=== PATIENT | male | born 1980 | race American Indian/Alaskan Native ===

== ENCOUNTER 2017-05-17 16:02 | Inpatient (IN) | payer SELFPAY ==
[2017-05-17 16:16] VITALS: BMI 25.8
[2017-05-17] MEDS ORDERED: Sodium Chloride 0.9% 1,000 ML IV ONE (16:18)
[2017-05-17] MEDS ORDERED: levETIRAcetam 500 MG in Sodium Chloride 0.9% 100 ML IVPB STA (16:18)
[2017-05-17 16:30] LABS: BASO % 0.4 % (0.0-2.0); EOS % 0.5 % (0.0-4.0); HEMATOCRIT 39.5 % (35.0-51.0); LYMPH % 22.4 % (20.0-40.0); MEAN CORPUSCULAR HEMOGLOBIN 32.2 pg (27.0-31.0); MEAN CORPUSCULAR HGB CONC 32.9 g/dL (33.0-37.0); MEAN PLATELET VOLUME 9.1 fL (7.2-11.7); MONO # 0.3 K/uL (0.0-0.8); MONO % 3.7 % (0.0-10.0); RED CELL DISTRIBUTION WIDTH 13.8 % (11.5-14.5)
[2017-05-17 16:31] LABS: MEAN CELL VOLUME 97.9 fL (80.0-94.0); WHITE BLOOD COUNT 8.9 K/uL (4.8-10.8)
[2017-05-17 16:39] LABS: CHLORIDE 103 mmol/L (98-107); POTASSIUM 4.3 mmol/L (3.6-5.2); SODIUM 138 mmol/L (132-148)
[2017-05-17 16:41] LABS: BILIRUBIN,TOTAL 0.7 mg/dL (0.2-1.3); GFR AFRICAN-AMERICAN > 60
[2017-05-17 16:42] LABS: ALB/GLOB RATIO 1.5 (1.0-2.1); ALKALINE PHOSPHATASE 42 U/L (38-126); ALT/SGPT 15 U/L (21-72); AST/SGOT 32 U/L (17-59); BLOOD UREA NITROGEN 13 mg/dL (9-20); CALCIUM 8.9 mg/dl (8.6-10.4); CARBON DIOXIDE 15 mmol/L (22-30); GLUCOSE,RANDOM 137 mg/dL (75-110); TOTAL PROTEIN 7.8 g/dL (6.3-8.3)
[2017-05-17 16:43] LABS: ALCOHOL SERUM < 10 mg/dl (0-10)
--- NOTE | 2017-05-17 16:44 | RAD ---
PROCEDURE: CHEST RADIOGRAPH, 1 VIEW HISTORY: Seizure COMPARISON: None available. FINDINGS: LUNGS: Clear. PLEURA: No pneumothorax or pleural fluid seen. CARDIOVASCULAR: Normal heart size. Endotracheal tube tip positioned approximately 4.7 cm above the tracheal juana. OSSEOUS STRUCTURES: No significant abnormalities. VISUALIZED UPPER ABDOMEN: Normal. OTHER FINDINGS: None. IMPRESSION: Endotracheal tube. No pulmonary infiltrate.
[2017-05-17] MEDS ORDERED: Midazolam 2 MG/2 ML VIAL ONE ×3 (16:55→17:53)
[2017-05-17] MEDS ORDERED: Midazolam 2 MG/2 ML VIAL IV STA ×2 (16:58)
--- NOTE | 2017-05-17 16:58 | C.PDOC ---
History Of Present Illness A 36 y/o male found on the path train with seizure that began [employer]. Pt was brought in by EMS and they reported that when they got to the path he was being supervised by police and the police noted he had constricted pupils and was seizing. Time and duration of initial seizure is unknown prior to EMS arrival. EMS reports that the pt appeared to have a mild generalized seizure with absence features (e.g. lateral gaze and staring). Pt was not responsive to verbal or physical stimuli at the scene. Medics gave him Ativan 2mg IV but the seizure did not stop. When they moved the pt to the stretcher he had a violent generalized tonic clonic seizure, where they gave him another 2mg of Ativan IV. He continued to seize and they administered RSI pre-medications with 200mg Succinylcholine and Versed 5mg. EMS were able to intubate him without difficulty , yet after intubation the pt started to seize again and they gave him another 5mg of Versed. Pt has no signs of injury and is currently unresponsive at this time. Time Seen by Provider: 05/17/17 16:05 Chief Complaint (Nursing): Seizure History Per: EMS History/Exam Limitations: clinical condition Recent Seizure Activity Began: Unknown Length Of Seizures (Duration): Unknown Quality Of Seizure: Generalized Post-ictal Period: Duration Unknown Severity: Moderate Past Medical History Reviewed: Historical Data, Nursing Documentation, Vital Signs Vital Signs: Last Vital Signs Temp 97.7 F 05/17/17 16:17 Pulse 111 H 05/17/17 16:17 Resp 21 05/17/17 16:17 BP Pulse Ox 99 05/17/17 17:24 - Medical History PMH: Asthma (CHILDHOOD NO LONGER), Fractures (FINGERS) Denies: Chronic Kidney Disease - [facility] Procedures PERCUTAN NEEDLE BX OF THYROID GLAND (01/19/15) Family History: States: Unknown Family Hx - Social History Hx Tobacco Use: No Hx Alcohol Use: No Hx Substance Use: Yes (MARIJUANA DAILY) - Immunization History Hx Influenza Vaccination: Yes Review Of Systems Review Of Systems: ROS cannot be obtained secondary to pt's inabilty to answer questions. Constitutional: Positive for: Other (No signs of trauma) Physical Exam - Physical Exam Appears: Other (Normal body habitus, clean and well kempt) Skin: Normal Color, Warm, Dry Head: Atraumatic, Normacephalic Eye(s): bilateral: Abnormal Pupil (constricted ) Nose: Normal Oral Mucosa: Moist Neck: No Step Off Deformity Chest: Symmetrical Cardiovascular: Rhythm Regular Respiratory: Normal Breath Sounds, Other (intubated, respirations via BVM) Gastrointestinal/Abdominal: Soft Neurological/Psych: No Response To Commands Pain Response: No Response To Pain ED Course And Treatment - Laboratory Results Result Diagrams: 05/17/17 16:22 05/17/17 16:22 Lab Interpretation: No Acute Changes ECG: Interpreted By Me ECG Rhythm: Sinus Rhythm ECG Interpretation: Normal O2 Sat by Pulse Oximetry: 99 - Radiology CXR: Interpreted by Fl CXR Interpretation: Yes: No Acute Disease (ET tube 4cm above the juana) Progress Note: Patient not showing any evidence of seizure activity in ED. Continues to be unresponsive. - Physician Consult Information Outcome Of Conversation: Case discussed with Dr Sullivan and Dr Pereyra. He will be admitted to ICU for status epilepticus. He remains unresponsive but did start to have purposeful movements and was attempting to remove IVs and ET tube. Additiona Versed administered. Unable to obtain CT exam due to patient agitation. Case discussed iw Dr Pereyra. Patient to be transferred to ICU for evaluation. Medical Decision Making Medical Decision Making: Impression: A 36 y/o male found on the path train with seizure that began [employer]. Seizure duration is unknown. Plans: CT Head w/o contrast EKG Blood labs Levetiracetam Versed inj x2 IV fluids NPO diet UA Reassess Disposition - Disposition Disposition: HOSPITALIZED Disposition Time: 18:45 Condition: STABLE - POA Present On Arrival: None - Clinical Impression Clinical Impression: Status epilepticus - Scribe Statement The provider has reviewed the documentation as recorded by the Scribe Edgar aguilar All medical record entries made by the Scribe were at my direction and personally dictated by me. I have reviewed the chart and agree that the record accurately reflects my personal performance of the history, physical exam, medical decision making, and the department course for this patient. I have also personally directed, reviewed, and agree with the discharge instructions and disposition.
[2017-05-17] MEDS ORDERED: Midazolam 50 mg/10 ml 100 MG in Dextrose 5% In Water 80 ML IV SCH (17:00)
[2017-05-17 17:48] LABS: RBC URINE 1 /hpf (0-3); URINE BACTERIA RARE (<OCC); URINE BILIRUBIN NEGATIVE (NEGATIVE); URINE BLOOD NEGATIVE (NEGATIVE); URINE COLOR Yellow (YELLOW); URINE GLUCOSE (UA) NORMAL (Normal); URINE KETONE NEGATIVE (NEGATIVE); URINE LEUKOCYTE ESTERASE NEG Leu/uL (Negative); URINE PROTEIN 1+ mg/dL (NEGATIVE); URINE UROBILINOGEN NORMAL mg/dL (0.2-1.0); WBC URINE 2 /hpf (0-5)
[2017-05-17] MEDS ORDERED: Midazolam 2 MG/2 ML VIAL IVP STA (17:55)
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
[2017-05-17] MEDS ORDERED: Propofol 10 mg/ml Inj (20 ML) ONE (18:30)
[2017-05-17] MEDS: Propofol 10 mg/ml 1,000 MG/100 ML VIAL IV PRN ×2 (18:45→21:13)
[2017-05-17] MEDS ORDERED: levETIRAcetam 500 MG in Sodium Chloride 0.9% 100 ML IVPB ONE (18:46)
[2017-05-17] MEDS ORDERED: Propofol 10 mg/ml Inj (20 ML) IV ONE (19:04)
[2017-05-17] MEDS ORDERED: levETIRAcetam 1,000 MG in Sodium Chloride 0.9% 100 ML IVPB ONE (19:20)
[2017-05-17 20:13] LABS: ABG MECHANICAL RATE 14; ARTERIAL BLOOD HGB O2 SAT 70.1 % (95.0-98.0); ATERIAL BLOOD GAS PEEP 5; CARBOXYHEMOGLOBIN 1.6 % (0.5-1.5); HHB 27.4 % (0.0-5.0); METHEMOGLOBIN 0.9 % (0.0-3.0)
[2017-05-17 20:23] LABS: ABG ALLEN TEST OS; DRAW SITE RRA
--- NOTE | 2017-05-17 22:20 | CT ---
EXAM: CT Head Without Intravenous Contrast CLINICAL HISTORY: 36 years old, male; Signs and symptoms; Other: Seizure; Patient HX: Status epilepticus TECHNIQUE: Axial computed tomography images of the head/brain without intravenous contrast. This CT exam was performed using one or more of the following dose reduction techniques: automated exposure control, adjustment of the mA and/or kV according to patient size, and/or use of iterative reconstruction technique. Coronal and sagittal reformatted images were created and reviewed. COMPARISON: No relevant prior studies available. FINDINGS: Brain: No intracranial hemorrhage. No mass. No definite edema. Ventricles: No hydrocephalus. Bones/joints: No acute fracture. Soft tissues: Unremarkable. Sinuses: No acute sinusitis. Mastoid air cells: No mastoid effusion. Orbits: Unremarkable as visualized. Tubes, lines and devices: Endotracheal tube. IMPRESSION: 1. No definite acute intracranial abnormality. 2. Incidental/non-acute findings are described above.
[2017-05-18] MEDS: Propofol 10 mg/ml 1,000 MG/100 ML VIAL IV PRN ×3 (01:29→09:21)
[2017-05-18 05:27] LABS: ABG ALLEN TEST POS; ABG MECHANICAL RATE 14; ARTERIAL BLOOD HGB O2 SAT 97.2 % (95.0-98.0); ATERIAL BLOOD GAS PEEP 5; CARBOXYHEMOGLOBIN 1.2 % (0.5-1.5); DRAW SITE RR; HHB 0.3 % (0.0-5.0); METHEMOGLOBIN 1.3 % (0.0-3.0)
--- NOTE | 2017-05-18 06:28 | CP.CCUPN ---
<Yanet Yi - Last Filed: 05/18/17 13:22> CCU Subjective - Physician Review Subjective (Free Text): 05/18/17 13:27 Patient seen and examined at bedside. Sedation was discontinued and patient was extubated this AM and placed on ventimask which he tolerated Patient currently on NC 3L He reports he is feeling well and wants to go home and walk around. Patient denied headache, dizziness, chest pain, SOB, cough, abd pain, pain/ swelling in legs bilaterally. Patient is still a little drowsy. Awaiting swallow eval. CCU Objective - Vital Signs / Intake & Output Vital Signs (Last 4 hours): Vital Signs Pulse Resp BP Pulse Ox 05/18/17 03:50 78 14 106/66 100 05/18/17 03:30 75 14 100 05/18/17 03:20 76 14 99/60 L 100 05/18/17 03:00 79 14 100 05/18/17 02:50 79 14 103/59 L 100 05/18/17 02:30 79 14 100 Intake and Output (Last 8hrs): Intake & Output 05/17/17 05/17/17 05/18/17 14:59 22:59 06:59 Intake Total 197.9 264.9 Output Total 175 285 Balance 22.9 -20.1 Weight 179 lb 5 oz Intake: IV 100 100 Intake, IV Amount 97.9 164.9 left forearm 4.8 8.0 right forearm 93.1 156.9 Oral 0 Output: Urine 175 285 Urethral (Quinonez) 175 285 Other: Voiding Method Indwelling Catheter # Bowel Movements 0 0 - Physical Exam Head: Positive for: Atraumatic, Normocephalic Pupils: Positive for: PERRL Extroacular Muscles: Positive for: EOMI Conjunctiva: Positive for: Normal. Negative for: Injected, Icteric Mouth: Positive for: Moist Mucous Membranes Neck: Positive for: Trachea Midline. Negative for: JVD Respiratory/Chest: Positive for: Clear to Auscultation, Good Air Exchange. Negative for: Respiratory Distress, Accessory Muscle Use, Wheezes, Rales, Rhonchi Cardiovascular: Positive for: Regular Rate and Rhythm, Normal S1, S2. Negative for: Murmurs Abdomen: Positive for: Normal Bowel Sounds. Negative for: Tenderness Upper Extremity: Positive for: Normal Inspection. Negative for: Cyanosis, Edema Lower Extremity: Positive for: Normal Inspection. Negative for: Edema Neurological: Positive for: Speech Normal Skin: Positive for: Warm, Dry, Rashes, Normal Color Psychiatric: Positive for: Alert, Oriented x 3 - Medications Active Medications: Active Medications Generic Name Dose Route Start Last Admin Trade Name Freq PRN Reason Stop Dose Admin Midazolam HCl 100 mg/ Dextrose 100 mls @ 1.63 mls/hr 05/17/17 17:00 05/17/17 17:30 IV 0.02 mg/kg/hr .Q24H NOLVIA 1.63 mls/hr Protocol Administration 0.02 MG/KG/HR Propofol 1,000 mg in 100 mls @ 1.47 mls/hr 05/17/17 18:28 05/18/17 03:50 Diprivan IV 40 mcg/kg/min .Q24H PRN 19.6 mls/hr TITRATE PER MD ORDER Titration Protocol 3 MCG/KG/MIN Levetiracetam 500 mg/ Sodium 105 mls @ 420 mls/hr 05/18/17 07:00 Chloride IVPB Q12H NOLVIA Pantoprazole Sodium 40 mg 05/18/17 10:00 Protonix Inj IVP DAILY NOLVIA Pneumococcal Polyvalent Vaccine 0.5 ml 05/19/17 10:00 Pneumovax 23 Vaccine IM 05/19/17 10:01 .ONCE ONE - Patient Studies Lab Studies: Lab Studies 05/18/17 05/17/17 Range/Units 05:14 20:05 Puncture Site Rr Rra pCO2 36 40 (35-45) mm/Hg pO2 201 H 527 H (80-100) mm/Hg HCO3 25.4 24.5 (21-28) mmol/L ABG pH 7.44 7.39 (7.35-7.45) ABG Total CO2 25.6 25.4 (22-28) mmol/L ABG O2 Saturation 99.7 H 100.5 H (95-98) % ABG Base Excess 0.6 -0.7 (-2.0-3.0) mmol/L ABG Hemoglobin 12.5 11.9 (11.7-17.4) g/dL ABG Carboxyhemoglobin 1.2 1.6 H (0.5-1.5) % POC ABG HHb (Measured) 0.3 27.4 H (0.0-5.0) % ABG Methemoglobin 1.3 0.9 (0.0-3.0) % Horacio Test Pos Os A-a O2 Difference 111.0 136.0 mm/Hg Respiratory Index 0.6 0.3 Hgb O2 Saturation 97.2 70.1 L (95.0-98.0) % Mechanical Rate 14 14 FiO2 50.0 100.0 % Tidal Volume 550 550 PEEP 5 5 Crit Value Called To Dr campos Crit Value Called By [facility] Crit Value Read Back Y Blood Gas Notified Time 2009 Laboratory Results - last 24 hr 05/17/17 05/18/17 20:05 05:14 Puncture Site Rra Rr pCO2 40 36 pO2 527 H 201 H HCO3 24.5 25.4 ABG pH 7.39 7.44 ABG Total CO2 25.4 25.6 ABG O2 Saturation 100.5 H 99.7 H ABG Base Excess -0.7 0.6 ABG Hemoglobin 11.9 12.5 ABG Carboxyhemoglobin 1.6 H 1.2 POC ABG HHb (Measured) 27.4 H 0.3 ABG Methemoglobin 0.9 1.3 Horacio Test Os Pos A-a O2 Difference 136.0 111.0 Respiratory Index 0.3 0.6 Hgb O2 Saturation 70.1 L 97.2 Mechanical Rate 14 14 FiO2 100.0 50.0 Tidal Volume 550 550 PEEP 5 5 Crit Value Called To Dr campos Crit Value Called By [facility] Crit Value Read Back Y Blood Gas Notified Time 2009 Fingerstick Blood Sugar Results: 115 Review of Systems - Review of Systems Review of Systems: complete ROS unobtainable as patient was drowsy from sedation Assessment/Plan - Assessment and Plan (Free Text) Assessment: 36 A.A. M PMHx thyroidectomy (2015) BIBA after witnessed seizure Plan: Neuro -s/p status epilepticus -possible hx of absence seizures- as per hx from -Off sedation -Patient extubated this AM tolerating NC 3L -Keppra 500mg po q12 -CT head unremarkable -f/u EEG -f/u MRI brain w/ and w/o contrast Cardiovascular -no acute issues -hemodynamically stable Pulmonology -extubated this AM -tolerating NC 3L GI -patient passed swallow eval -Regular diet for dinner Heme -no acute issues Renal -no acute issues -NS @ 80cc/hr Endocrine -s/p thyroidectomy 2015 -restarted synthroid 75mcg daily -TSH: 43.7 T4: 0.61 MSK -no acute issues ID -no acute issues DVT ppx: SCDs; Heparin 5000u sc q12 GI ppx: Protonix 40mg po daily Code status: full code Case discussed with Dr. Graham Yi PGY2 <Joseph Stevenson - Last Filed: 05/18/17 16:54> CCU Objective - Vital Signs / Intake & Output Vital Signs (Last 4 hours): Vital Signs Temp Pulse Resp BP Pulse Ox 05/18/17 16:00 98.4 F 77 32 H 121/73 100 05/18/17 15:30 84 17 137/81 05/18/17 15:18 79 21 133/76 100 05/18/17 14:30 82 32 H 100 05/18/17 14:00 88 32 H 123/85 100 05/18/17 13:30 79 21 127/74 100 05/18/17 13:00 81 14 127/89 100 05/18/17 12:30 96 H 22 123/78 100 Intake and Output (Last 8hrs): Intake & Output 05/18/17 05/18/17 05/18/17 06:59 14:59 22:59 Intake Total 423.6 265.2 120 Output Total 410 240 Balance 13.6 25.2 120 Weight 180 lb 1.883 oz Intake: IV 200 100 Intake, IV Amount 223.6 165.2 120 R forearm 100 Right Lower Forearm 4.8 120 Right Upper Forearm 210.8 58.8 left forearm 12.8 1.6 Output: Urine 410 240 Urethral (Quinonez) 410 240 Other: # Voids Urine, Voided 0 # Bowel Movements 0 0 0 - Medications Active Medications: Active Medications Generic Name Dose Route Start Last Admin Trade Name Freq PRN Reason Stop Dose Admin Heparin Sodium (Porcine) 5,000 units 05/18/17 22:00 Heparin SC Q12 NOLVIA Sodium Chloride 1,000 mls @ 80 mls/hr 05/18/17 13:45 05/18/17 14:23 Sodium Chloride 0.9% IV 80 mls/hr .[id number] NOLVIA Administration Levetiracetam 500 mg 05/18/17 18:00 Keppra PO BID [facility] Levothyroxine Sodium 75 mcg 05/19/17 06:30 Synthroid PO DAILY@0630 [facility] Pantoprazole Sodium 40 mg 05/19/17 10:00 Protonix Ec Tab PO DAILY [facility] Pneumococcal Polyvalent Vaccine 0.5 ml 05/19/17 10:00 Pneumovax 23 Vaccine IM 05/19/17 10:01 .ONCE ONE - Patient Studies Lab Studies: Lab Studies 05/18/17 05/18/17 05/18/17 Range/Units 06:27 06:27 06:27 WBC 10.0 (4.8-10.8) K/uL RBC 4.00 L (4.40-5.90) Mil/uL Hgb 13.0 (12.0-18.0) g/dL Hct 38.3 (35.0-51.0) % MCV 95.9 H D (80.0-94.0) fL MCH 32.5 H (27.0-31.0) pg MCHC 33.9 (33.0-37.0) g/dL RDW 13.8 (11.5-14.5) % Plt Count 130 (130-400) K/uL MPV 10.4 (7.2-11.7) fL Neut % (Auto) 67.0 (50.0-75.0) % Lymph % (Auto) 25.1 (20.0-40.0) % Burnett % (Auto) 6.8 (0.0-10.0) % Eos % (Auto) 0.4 (0.0-4.0) % Baso % (Auto) 0.7 (0.0-2.0) % Neut # 6.7 (1.8-7.0) K/uL Lymph # 2.5 (1.0-4.3) K/uL Burnett # 0.7 (0.0-0.8) K/uL Eos # 0.0 (0.0-0.7) K/uL Baso # 0.1 (0.0-0.2) K/uL Puncture Site pCO2 (35-45) mm/Hg pO2 (80-100) mm/Hg HCO3 (21-28) mmol/L ABG pH (7.35-7.45) ABG Total CO2 (22-28) mmol/L ABG O2 Saturation (95-98) % ABG Base Excess (-2.0-3.0) mmol/L ABG Hemoglobin (11.7-17.4) g/dL ABG Carboxyhemoglobin (0.5-1.5) % POC ABG HHb (Measured) (0.0-5.0) % ABG Methemoglobin (0.0-3.0) % Horacio Test A-a O2 Difference mm/Hg Respiratory Index Hgb O2 Saturation (95.0-98.0) % Mechanical Rate FiO2 % Tidal Volume PEEP Crit Value Called To Crit Value Called By Crit Value Read Back Blood Gas Notified Time Sodium 137 (132-148) mmol/L Potassium 3.6 (3.6-5.2) mmol/L Chloride 102 (98-107) mmol/L Carbon Dioxide 24 (22-30) mmol/L Anion Gap 14 (10-20) BUN 11 (9-20) mg/dL Creatinine 0.8 (0.8-1.5) MG/DL Est GFR ( Amer) > 60 Est GFR (Non-Af Amer) > 60 Random Glucose 99 (75-110) mg/dL Calcium 9.0 (8.6-10.4) mg/dl Phosphorus 3.4 (2.5-4.5) mg/dL Magnesium 2.4 H (1.6-2.3) mg/dL Total Bilirubin 1.0 (0.2-1.3) mg/dL AST 38 (17-59) U/L ALT 19 L D (21-72) U/L Alkaline Phosphatase 46 (38-126) U/L Total Protein 7.3 (6.3-8.3) g/dL Albumin 4.3 (3.5-5.0) g/dL Globulin 3.0 (2.2-3.9) gm/dL Albumin/Globulin Ratio 1.4 (1.0-2.1) Free T4 0.61 L (0.78-2.19) ng/dL TSH 3rd Generation 43.70 H (0.46-4.68) mIU/L 05/18/17 05/17/17 Range/Units 05:14 20:05 WBC (4.8-10.8) K/uL RBC (4.40-5.90) Mil/uL Hgb (12.0-18.0) g/dL Hct (35.0-51.0) % MCV (80.0-94.0) fL MCH (27.0-31.0) pg MCHC (33.0-37.0) g/dL RDW (11.5-14.5) % Plt Count (130-400) K/uL MPV (7.2-11.7) fL Neut % (Auto) (50.0-75.0) % Lymph % (Auto) (20.0-40.0) % Burnett % (Auto) (0.0-10.0) % Eos % (Auto) (0.0-4.0) % Baso % (Auto) (0.0-2.0) % Neut # (1.8-7.0) K/uL Lymph # (1.0-4.3) K/uL Burnett # (0.0-0.8) K/uL Eos # (0.0-0.7) K/uL Baso # (0.0-0.2) K/uL Puncture Site Rr Rra pCO2 36 40 (35-45) mm/Hg pO2 201 H 527 H (80-100) mm/Hg HCO3 25.4 24.5 (21-28) mmol/L ABG pH 7.44 7.39 (7.35-7.45) ABG Total CO2 25.6 25.4 (22-28) mmol/L ABG O2 Saturation 99.7 H 100.5 H (95-98) % ABG Base Excess 0.6 -0.7 (-2.0-3.0) mmol/L ABG Hemoglobin 12.5 11.9 (11.7-17.4) g/dL ABG Carboxyhemoglobin 1.2 1.6 H (0.5-1.5) % POC ABG HHb (Measured) 0.3 27.4 H (0.0-5.0) % ABG Methemoglobin 1.3 0.9 (0.0-3.0) % Horacio Test Pos Os A-a O2 Difference 111.0 136.0 mm/Hg Respiratory Index 0.6 0.3 Hgb O2 Saturation 97.2 70.1 L (95.0-98.0) % Mechanical Rate 14 14 FiO2 50.0 100.0 % Tidal Volume 550 550 PEEP 5 5 Crit Value Called To Dr campos Crit Value Called By [facility] Crit Value Read Back Y Blood Gas Notified Time 2009 Sodium (132-148) mmol/L Potassium (3.6-5.2) mmol/L Chloride (98-107) mmol/L Carbon Dioxide (22-30) mmol/L Anion Gap (10-20) BUN (9-20) mg/dL Creatinine (0.8-1.5) MG/DL Est GFR ( Amer) Est GFR (Non-Af Amer) Random Glucose (75-110) mg/dL Calcium (8.6-10.4) mg/dl Phosphorus (2.5-4.5) mg/dL Magnesium (1.6-2.3) mg/dL Total Bilirubin (0.2-1.3) mg/dL AST (17-59) U/L ALT (21-72) U/L Alkaline Phosphatase (38-126) U/L Total Protein (6.3-8.3) g/dL Albumin (3.5-5.0) g/dL Globulin (2.2-3.9) gm/dL Albumin/Globulin Ratio (1.0-2.1) Free T4 (0.78-2.19) ng/dL TSH 3rd Generation (0.46-4.68) mIU/L Laboratory Results - last 24 hr 05/17/17 05/18/17 05/18/17 20:05 05:14 06:27 WBC 10.0 RBC 4.00 L Hgb 13.0 Hct 38.3 MCV 95.9 H D MCH 32.5 H MCHC 33.9 RDW 13.8 Plt Count 130 MPV 10.4 Neut % (Auto) 67.0 Lymph % (Auto) 25.1 Burnett % (Auto) 6.8 Eos % (Auto) 0.4 Baso % (Auto) 0.7 Neut # 6.7 Lymph # 2.5 Burnett # 0.7 Eos # 0.0 Baso # 0.1 Puncture Site Rra Rr pCO2 40 36 pO2 527 H 201 H HCO3 24.5 25.4 ABG pH 7.39 7.44 ABG Total CO2 25.4 25.6 ABG O2 Saturation 100.5 H 99.7 H ABG Base Excess -0.7 0.6 ABG Hemoglobin 11.9 12.5 ABG Carboxyhemoglobin 1.6 H 1.2 POC ABG HHb (Measured) 27.4 H 0.3 ABG Methemoglobin 0.9 1.3 Horacio Test Os Pos A-a O2 Difference 136.0 111.0 Respiratory Index 0.3 0.6 Hgb O2 Saturation 70.1 L 97.2 Mechanical Rate 14 14 FiO2 100.0 50.0 Tidal Volume 550 550 PEEP 5 5 Crit Value Called To Dr campos Crit Value Called By [facility] Crit Value Read Back Y Blood Gas Notified Time 2009 Sodium Potassium Chloride Carbon Dioxide Anion Gap BUN Creatinine Est GFR ( Amer) Est GFR (Non-Af Amer) Random Glucose Calcium Phosphorus Magnesium Total Bilirubin AST ALT Alkaline Phosphatase Total Protein Albumin Globulin Albumin/Globulin Ratio Free T4 TSH 3rd Generation 05/18/17 05/18/17 06:27 06:27 WBC RBC Hgb Hct MCV MCH MCHC RDW Plt Count MPV Neut % (Auto) Lymph % (Auto) Burnett % (Auto) Eos % (Auto) Baso % (Auto) Neut # Lymph # Burnett # Eos # Baso # Puncture Site pCO2 pO2 HCO3 ABG pH ABG Total CO2 ABG O2 Saturation ABG Base Excess ABG Hemoglobin ABG Carboxyhemoglobin POC ABG HHb (Measured) ABG Methemoglobin Horacio Test A-a O2 Difference Respiratory Index Hgb O2 Saturation Mechanical Rate FiO2 Tidal Volume PEEP Crit Value Called To Crit Value Called By Crit Value Read Back Blood Gas Notified Time Sodium 137 Potassium 3.6 Chloride 102 Carbon Dioxide 24 Anion Gap 14 BUN 11 Creatinine 0.8 Est GFR ( Amer) > 60 Est GFR (Non-Af Amer) > 60 Random Glucose 99 Calcium 9.0 Phosphorus 3.4 Magnesium 2.4 H Total Bilirubin 1.0 AST 38 ALT 19 L D Alkaline Phosphatase 46 Total Protein 7.3 Albumin 4.3 Globulin 3.0 Albumin/Globulin Ratio 1.4 Free T4 0.61 L TSH 3rd Generation 43.70 H Critical Care Progress Note - Nutrition Nutrition: Nutrition Category Date Time Status Regular Diet [DIET] Diets 05/18/17 Dinner Active Attending/Attestation - Attestation I have personally seen and examined this patient.: Yes I have fully participated in the care of the patient.: Yes I have reviewed all pertinent clinical information: Yes Notes (Text): 05/18/17 16:24 I have seen and examined the patient. Medical records, lab studies, and imaging were reviewed by me and a management plan was formulated on multidisciplinary rounds with resident Dr. Yi. I agree with their above documented assessment and plan. Patient has history of absence seizures, continue Keppra po bid. Patient extubated, and clinically stable for downgrade to the floors. Critical Care Time 35 minutes. Multi-disciplinary rounds were performed with house staff, nursing, speech therapy, respiratory therapy, pharmacy and nutrition with integrated input from the primary team/attending and other consulting services. The documented time is cumulative and includes review of patient data/exams/labs/chart review and examination of the patient on rounds and throughout the day; time is exclusive of any procedures or teaching time. 05/18/17 16:25 05/18/17 16:53
[2017-05-18 06:36] LABS: BASO # 0.1 K/uL (0.0-0.2); BASO % 0.7 % (0.0-2.0); EOS % 0.4 % (0.0-4.0); HEMATOCRIT 38.3 % (35.0-51.0); LYMPH # 2.5 K/uL (1.0-4.3); LYMPH % 25.1 % (20.0-40.0); MEAN CELL VOLUME 95.9 fL (80.0-94.0); MEAN CORPUSCULAR HEMOGLOBIN 32.5 pg (27.0-31.0); MEAN CORPUSCULAR HGB CONC 33.9 g/dL (33.0-37.0); MEAN PLATELET VOLUME 10.4 fL (7.2-11.7); MONO # 0.7 K/uL (0.0-0.8); MONO % 6.8 % (0.0-10.0); NRBC % 0.1 % (0.0-2.0); RED CELL DISTRIBUTION WIDTH 13.8 % (11.5-14.5)
[2017-05-18] MEDS ORDERED: levETIRAcetam 500 MG in Sodium Chloride 0.9% 100 ML IVPB SCH (07:00)
[2017-05-18 07:04] LABS: CHLORIDE 102 mmol/L (98-107)
[2017-05-18 07:05] LABS: POTASSIUM 3.6 mmol/L (3.6-5.2); SODIUM 137 mmol/L (132-148)
[2017-05-18 07:07] LABS: ALB/GLOB RATIO 1.4 (1.0-2.1); ALKALINE PHOSPHATASE 46 U/L (38-126); AST/SGOT 38 U/L (17-59); BLOOD UREA NITROGEN 11 mg/dL (9-20); CARBON DIOXIDE 24 mmol/L (22-30); GFR AFRICAN-AMERICAN > 60; GLUCOSE,RANDOM 99 mg/dL (75-110); TOTAL PROTEIN 7.3 g/dL (6.3-8.3)
[2017-05-18 07:08] LABS: ALT/SGPT 19 U/L (21-72); MAGNESIUM 2.4 mg/dL (1.6-2.3); PHOSPHOROUS 3.4 mg/dL (2.5-4.5)
--- NOTE | 2017-05-18 10:26 | CP.PCM.CON ---
History of Present Illness - History of Present Illness History of Present Illness: Mr. Mahoney is a 36-year-old man with a past medical history of thyroidectomy and some episodes of shakes and "spacing out" per the . According to EMS report , the patient [place] on the train that lasted about 15 minutes. He was given 2 mg of Ativan, and he had another seizure, therefor he was given another 2 mg and subsequently intubated. Currently, the patient is in the ICU, intubated, sedated on midazolam and propofol. He was loaded with 1000 mg of Keppra yesterday and given another dose of 500 mg this AM. There were no other clinical seizures overnight. Review of Systems - Review of Systems Systems not reviewed;Unavailable: Altered Mental Status, Intubated Past Patient History - Past Medical History & Family History Past Medical History?: Yes - Past Social History Smoking Status: Never Smoked - CARDIAC Hx Cardiac Disorders: No - PULMONARY Hx Asthma: Yes (CHILDHOOD ,NO LONGER an active problem) - NEUROLOGICAL Hx Neurological Disorder: No - HEENT Hx HEENT Problems: Yes (Thyroid Nodule, goiter) - RENAL Hx Chronic Kidney Disease: No - ENDOCRINE/METABOLIC Hx Endocrine Disorders: Yes Other/Comment: Thyroid Nodule/goiter - HEMATOLOGICAL/ONCOLOGICAL Hx Blood Disorders: No - INTEGUMENTARY Hx Dermatological Problems: No - MUSCULOSKELETAL/RHEUMATOLOGICAL Hx Falls: No - GASTROINTESTINAL Hx Gastrointestinal Disorders: No - GENITOURINARY/GYNECOLOGICAL Hx Genitourinary Disorders: No - PSYCHIATRIC Hx Substance Use: Yes (MARIJUANA DAILY) - SURGICAL HISTORY Hx Surgeries: Yes Other/Comment: thyroidectomy July 12, 2015 - ANESTHESIA Hx Anesthesia: Yes Hx Anesthesia Reactions: No Hx Malignant Hyperthermia: No Meds Allergies/Adverse Reactions: Allergies Allergy/AdvReac Type Severity Reaction Status Date / Time No Known Allergies Allergy Verified 05/17/17 16:16 - Medications Medications: Current Medications Midazolam HCl 100 mg/ Dextrose 100 mls @ 1.63 mls/hr IV .Q24H NOLVIA; 0.02 MG/KG/ HR PRN Reason: Protocol Last Admin: 05/17/17 17:30 Dose: 0.02 mg/kg/hr, 1.63 mls/hr Propofol (Diprivan) 1,000 mg in 100 mls @ 1.47 mls/hr IV .Q24H PRN; Protocol; 3 MCG/KG/MIN PRN Reason: TITRATE PER MD ORDER Last Admin: 05/18/17 09:21 Dose: 30 mcg/kg/min, 14.7 mls/hr Levetiracetam 500 mg/ Sodium (Chloride) 105 mls @ 420 mls/hr IVPB Q12H [facility] Last Admin: 05/18/17 07:00 Dose: 420 mls/hr Pantoprazole Sodium (Protonix Inj) 40 mg IVP DAILY [facility] Last Admin: 05/18/17 09:20 Dose: 40 mg Pneumococcal Polyvalent Vaccine (Pneumovax 23 Vaccine) 0.5 ml IM .ONCE ONE Stop: 05/19/17 10:01 Physical Exam - Constitutional Appears: Well - Head Exam Head Exam: ATRAUMATIC, NORMAL INSPECTION, NORMOCEPHALIC - Eye Exam Eye Exam: EOMI, Normal appearance, PERRL - Neck Exam Neck exam: Positive for: Normal Inspection - Respiratory Exam Additional comments: Intubated, sedated, breathing over the vent and tolerating it well. - GI/Abdominal Exam GI & Abdominal Exam: Normal Bowel Sounds, Soft. absent: Tenderness - Neurological Exam Additional comments: When off sedation, followed simple commands, moved all extremities, CN 2-12 were intact, reflexes were normal, plantar response was flexor bilaterally, no gaze palsy noted. - Skin Skin Exam: Dry, Intact, Normal Color, Warm Results - Vital Signs Recent Vital Signs: Last Vital Signs Temp 98.3 F 05/18/17 08:00 Pulse 79 05/18/17 10:00 Resp 14 05/18/17 10:00 BP 107/62 05/18/17 10:00 Pulse Ox 100 05/18/17 10:00 - Labs Result Diagrams: 05/18/17 06:27 05/18/17 06:27 Labs: Laboratory Results - last 24 hr 05/17/17 05/18/17 05/18/17 20:05 05:14 06:27 WBC 10.0 RBC 4.00 L Hgb 13.0 Hct 38.3 MCV 95.9 H D MCH 32.5 H MCHC 33.9 RDW 13.8 Plt Count 130 MPV 10.4 Neut % (Auto) 67.0 Lymph % (Auto) 25.1 [place] % (Auto) 6.8 Eos % (Auto) 0.4 Baso % (Auto) 0.7 Neut # 6.7 Lymph # 2.5 [place] # 0.7 Eos # 0.0 Baso # 0.1 Puncture Site Rra Rr pCO2 40 36 pO2 527 H 201 H HCO3 24.5 25.4 ABG pH 7.39 7.44 ABG Total CO2 25.4 25.6 ABG O2 Saturation 100.5 H 99.7 H ABG Base Excess -0.7 0.6 ABG Hemoglobin 11.9 12.5 ABG Carboxyhemoglobin 1.6 H 1.2 POC ABG HHb (Measured) 27.4 H 0.3 ABG Methemoglobin 0.9 1.3 Horacio Test Os Pos A-a O2 Difference 136.0 111.0 Respiratory Index 0.3 0.6 Hgb O2 Saturation 70.1 L 97.2 Mechanical Rate 14 14 FiO2 100.0 50.0 Tidal Volume 550 550 PEEP 5 5 Crit Value Called To Dr campos Crit Value Called By [facility] [place] Crit Value Read Back Y Blood Gas Notified Time 2009 Sodium Potassium Chloride Carbon Dioxide Anion Gap BUN Creatinine Est GFR ( Amer) Est GFR (Non-Af Amer) Random Glucose Calcium Phosphorus Magnesium Total Bilirubin AST ALT Alkaline Phosphatase Total Protein Albumin Globulin Albumin/Globulin Ratio Free T4 TSH 3rd Generation 05/18/17 05/18/17 06:27 06:27 WBC RBC Hgb Hct MCV MCH MCHC RDW Plt Count MPV Neut % (Auto) Lymph % (Auto) [place] % (Auto) Eos % (Auto) Baso % (Auto) Neut # Lymph # [place] # Eos # Baso # Puncture Site pCO2 pO2 HCO3 ABG pH ABG Total CO2 ABG O2 Saturation ABG Base Excess ABG Hemoglobin ABG Carboxyhemoglobin POC ABG HHb (Measured) ABG Methemoglobin Horacio Test A-a O2 Difference Respiratory Index Hgb O2 Saturation Mechanical Rate FiO2 Tidal Volume PEEP Crit Value Called To Crit Value Called By Crit Value Read Back Blood Gas Notified Time Sodium 137 Potassium 3.6 Chloride 102 Carbon Dioxide 24 Anion Gap 14 BUN 11 Creatinine 0.8 Est GFR ( Amer) > 60 Est GFR (Non-Af Amer) > 60 Random Glucose 99 Calcium 9.0 Phosphorus 3.4 Magnesium 2.4 H Total Bilirubin 1.0 AST 38 ALT 19 L D Alkaline Phosphatase 46 Total Protein 7.3 Albumin 4.3 Globulin 3.0 Albumin/Globulin Ratio 1.4 Free T4 0.61 L TSH 3rd Generation 43.70 H - Imaging and Cardiology CT scan - head Status: Image reviewed by me, Report reviewed by me (No acute findings. ) Assessment & Plan (1) Status epilepticus Assessment and Plan: Loaded with Keppra, will continue 500 mg Q12. Will review the EEG and begin weaning off the Versed and propofol with a plan to extubate when stable. MRI of the brain will be done after extubation with and without contrast. Continue DVT Px, GI Px, PT/OT if needed when stable. Thank you for this consultation. Status: Acute Priority: High
--- NOTE | 2017-05-18 10:39 | RAD ---
Chest x-ray single frontal view History: Intubated. Comparison: 05/17/2017 Findings: Endotracheal tube extending into the mid thoracic trachea. Mild venous congestion. Rounded masslike opacity projecting over the lateral aspect of the left upper lung zone may be external. Clinical correlation. Heart size within normal limits. Degenerative changes in the spine shoulders. Impression: Endotracheal tube extending into the mid thoracic trachea. Mild venous congestion. Rounded masslike opacity projecting over the lateral aspect of the left upper lung zone may be external. Clinical correlation.
--- NOTE | 2017-05-18 11:14 | EEG ---
DATE: 05/17/2017 REFERRING PHYSICIAN: Dr. Aram Sullivan. CONDITION OF RECORDING: Awake and drowsy. DIAGNOSIS: Status epilepticus. MEDICATIONS: Reviewed per the nurse's reconciliation sheet. INTERPRETATION: This is a 16-channel international recording. The background activity was composed of mostly beta and some alpha. There was a poorly organized background rhythm of about 8-10 Hz. At times this was 20-50 microvolt and consistent with alpha. It did attenuate with eye opening, but was overwhelmed at times with beta activity as well. Stage II sleep was not achieved. Hyperventilation was not performed. Photic stimulation did not significantly alter the background rhythm. There was prominent muscle artifact as well as machinery artifact. There were no epileptiform discharges note d. IMPRESSION: This is probably a normal awake and drowsy electroencephalogram that is affected by reynaldo odiazepine influence. However, in the appropriate clinical setting, the patient may require prolonge d electroencephalogram monitoring, considering he did have several seizures prior to intubation. Reggie Freeman MD cc: [id number] TT: 05/18/2017 11:14:08 Confirmation # [id number] Dictation # [id number] mn
[2017-05-18] MEDS: Sodium Chloride 0.9% 1,000 ML IV SCH (14:23)
[2017-05-18] MEDS ORDERED: Gadodiamide 287 MG/ML VIAL (15ML) IV ONE (16:45)
--- NOTE | 2017-05-18 16:55 | CP.PCM.PN ---
Subjective - Date & Time of Evaluation Date of Evaluation: 05/18/17 Time of Evaluation: 14:00 - Subjective Subjective: Patient seen and examined in ICU Patient is extubated now Appears agitated and wants to leave the hospital Family is present at bedside Objective - Vital Signs/Intake and Output Vital Signs (last 24 hours): Temp Pulse Resp BP Pulse Ox 98.4 F 77 32 H 121/73 100 05/18/17 16:00 05/18/17 16:00 05/18/17 16:00 05/18/17 16:00 05/18/17 16:00 Intake and Output: 05/18/17 05/18/17 06:59 18:59 Intake Total 621.5 385.2 Output Total 585 240 Balance 36.5 145.2 - Medications Medications: Current Medications Heparin Sodium (Porcine) (Heparin) 5,000 units SC Q12 NOLVIA Sodium Chloride (Sodium Chloride 0.9%) 1,000 mls @ 80 mls/hr IV .[id number] NOLVIA Last Admin: 05/18/17 14:23 Dose: 80 mls/hr Levetiracetam (Keppra) 500 mg PO BID NOLVIA Levothyroxine Sodium (Synthroid) 75 mcg PO DAILY@0630 NOLVIA Pantoprazole Sodium (Protonix Ec Tab) 40 mg PO DAILY NOLVIA Pneumococcal Polyvalent Vaccine (Pneumovax 23 Vaccine) 0.5 ml IM .ONCE ONE Stop: 05/19/17 10:01 - Labs Labs: 05/18/17 06:27 05/18/17 06:27 - Head Exam Head Exam: ATRAUMATIC, NORMOCEPHALIC - Eye Exam Eye Exam: EOMI, Normal appearance, PERRL - ENT Exam ENT Exam: Mucous Membranes Moist - Neck Exam Neck Exam: Normal Inspection - Respiratory Exam Respiratory Exam: Clear to Ausculation Bilateral. absent: Chest Wall Tenderness - Cardiovascular Exam Cardiovascular Exam: REGULAR RHYTHM, +S1, +S2 - Extremities Exam Extremities Exam: absent: Pedal Edema - Neurological Exam Neurological Exam: Alert, Awake Assessment and Plan (1) Status epilepticus Assessment & Plan: Patient was admitted to ICU. He was intubated. Now he is extubated. A neurology consultation seen in appreciated Patient started on Keppra. Status: Acute (2) Hypothyroidism Assessment & Plan: Patient is on Synthroid. Status: Acute - Assessment and Plan (Free Text) Plan: Workup is in progress. As per ICU team patient to be downgraded to Med/Surg floor
--- NOTE | 2017-05-18 19:41 | CARD ---
APPROVED REPORT EKG Measurement Heart [id number] <Conclusion> Normal sinus rhythm Normal ECG
[2017-05-19] MEDS: Sodium Chloride 0.9% 1,000 ML IV SCH (04:10)
[2017-05-19] MEDS ORDERED: Levothyroxine 75 MCG TAB PO SCH (06:30)
[2017-05-19 06:43] LABS: HEMATOCRIT 36.8 % (35.0-51.0); MEAN CELL VOLUME 95.5 fL (80.0-94.0); MEAN CORPUSCULAR HGB CONC 33.5 g/dL (33.0-37.0); MEAN PLATELET VOLUME 9.9 fL (7.2-11.7); RED CELL DISTRIBUTION WIDTH 13.8 % (11.5-14.5); WHITE BLOOD COUNT 9.4 K/uL (4.8-10.8)
[2017-05-19 08:05] LABS: CHLORIDE 105 mmol/L (98-107); POTASSIUM 3.6 mmol/L (3.6-5.2); SODIUM 138 mmol/L (132-148)
[2017-05-19 08:07] LABS: CARBON DIOXIDE 27 mmol/L (22-30); GFR AFRICAN-AMERICAN > 60
[2017-05-19 08:08] LABS: ALB/GLOB RATIO 1.1 (1.0-2.1); ALKALINE PHOSPHATASE 41 U/L (38-126); ALT/SGPT 21 U/L (21-72); AST/SGOT 28 U/L (17-59); BLOOD UREA NITROGEN 10 mg/dL (9-20); CALCIUM 8.7 mg/dl (8.6-10.4); GLUCOSE,RANDOM 98 mg/dL (75-110); TOTAL PROTEIN 6.7 g/dL (6.3-8.3)
[2017-05-19 08:44] VITALS: BP 125/93; PULSE 60; RESP 11; TEMP 97.9; O2SAT 100
[2017-05-19] MEDS ORDERED: Pantoprazole 40 mg EC Tab PO SCH (10:00)
[2017-05-19] MEDS ORDERED: Pneumococcal 23-Valent Vaccine IM ONE (10:00)
--- NOTE | 2017-05-19 10:31 | MRI ---
PROCEDURE: MRI BRAIN WITH AND WITHOUT CONTRAST HISTORY: New onset tonic-clonic seizure COMPARISON: Comparison made with prior CT scan brain 05/17/2017 TECHNIQUE: Multiplanar, multisequence MR images of the brain were obtained before and following intravenous injection of approximately 15 cc Omniscan contrast material contrast enhancement. FINDINGS: HEMORRHAGE: No acute parenchymal, subarachnoid or extra-axial hemorrhage. No evidence hemosiderin deposition identified on gradient echo weighted sequence. DWI: No evidence of an acute or early subacute infarction seen on diffusion imaging. . BRAIN PARENCHYMA: Mild very subtle slightly confluent nonenhancing prolonged T2 signal changes seen in the very atrial/tearing occipital horn white matter. In addition, there are a few tiny focal areas of increased T2 signal scattered about subcortical white matter both cerebral hemispheres the too small to characterize and nonspecific. Changes of uncertain etiology though differential diagnosis would include sequela of chronic ischemia, migraine headaches, old trauma, post infectious/ inflammatory. Demyelinating disease process would be less likely in the absence of a pertinent clinical history however not completely excluded. Note also made of what appears represent a tiny cyst within the posterior superior margin of the pituitary gland measures approximately 6.5 mm trans x 3.7 mm cc. This could represent a benign arachnoid cyst, colloid cyst or of a Rathke's cleft cyst cannot be excluded. Followup dedicated MRI of the pituitary gland at interval may be prudent for further evaluation and serve as baseline for prior comparison studies. No enhancing parenchymal nor extra-axial masses. No evidence of unusual meningeal enhancement. No evidence to suggest mesial temporal sclerosis. Ventricular and sulcal size are within range of normal for this patient's stated age. ENHANCEMENT: No abnormal intracranial enhancement as above. . VENTRICLES: No evidence of obstructive hydrocephalus. CRANIUM: No acute calvarial abnormalities. ORBITS: Grossly unremarkable. PARANASAL SINUSES/MASTOIDS: Minimal mucosal thickening seen within a few ethmoid air cells VASCULAR SYSTEM: Visualized major vascular flow voids at skull base are patent. OTHER FINDINGS: None . IMPRESSION: No acute intracranial hemorrhage or infarct. Minor slightly confluent nonenhancing prolonged T2 signal changes seen in the periventricular white matter surrounding the atria and occipital horns. There are also a few tiny foci of nonenhancing increased T2 signal scattered about the subcortical white matter. Changes are nonspecific though could represent sequela of chronic ischemia, migraine headaches or old trauma. See above discussion for additional differential diagnostic considerations. There is a small cyst within the posterior superior margin of the pituitary gland of uncertain etiology. This could represent a benign pituitary gland cyst -arachnoid cyst, colloid cyst or Rathke's cleft cyst not excluded. Neoplastic cystic lesion less likely though not completely excluded. . Followup study at interval recommended to assess stability .
--- NOTE | 2017-05-19 21:23 | CP.PCM.DIS ---
<Nette Payne - Last Filed: 05/19/17 20:58> Provider - Provider Date of Admission: 05/17/17 18:21 Attending physician: Aram Sullivan MD Primary care physician: Dr. Ballard Consults: Dr. Freeman- Neurology Time Spent in preparation of Discharge (in minutes): 45 Diagnosis - Discharge Diagnosis (1) Status epilepticus Status: Resolved Priority: High Comment: See hospital summary for further details. (2) Hypothyroidism Status: Chronic Comment: See hospital summary for further details. Hospital Course - Lab Results Lab Results: Most Recent Lab Values WBC 9.4 K/uL (4.8-10.8) 05/19/17 06:41 RBC 3.86 Mil/uL (4.40-5.90) L 05/19/17 06:41 Hgb 12.4 g/dL (12.0-18.0) 05/19/17 06:41 Hct 36.8 % (35.0-51.0) 05/19/17 06:41 MCV 95.5 fL (80.0-94.0) H 05/19/17 06:41 MCH 32.0 pg (27.0-31.0) H 05/19/17 06:41 MCHC 33.5 g/dL (33.0-37.0) 05/19/17 06:41 RDW 13.8 % (11.5-14.5) 05/19/17 06:41 Plt Count 123 K/uL (130-400) L 05/19/17 06:41 MPV 9.9 fL (7.2-11.7) 05/19/17 06:41 Neut % (Auto) 67.0 % (50.0-75.0) 05/18/17 06:27 Lymph % (Auto) 25.1 % (20.0-40.0) 05/18/17 06:27 [place] % (Auto) 6.8 % (0.0-10.0) 05/18/17 06:27 Eos % (Auto) 0.4 % (0.0-4.0) 05/18/17 06:27 Baso % (Auto) 0.7 % (0.0-2.0) 05/18/17 06:27 Neut # 6.7 K/uL (1.8-7.0) 05/18/17 06:27 Lymph # 2.5 K/uL (1.0-4.3) 05/18/17 06:27 [place] # 0.7 K/uL (0.0-0.8) 05/18/17 06:27 Eos # 0.0 K/uL (0.0-0.7) 05/18/17 06:27 Baso # 0.1 K/uL (0.0-0.2) 05/18/17 06:27 Differential Comment 05/19/17 06:41 Puncture Site Rr 05/18/17 05:14 pCO2 36 mm/Hg (35-45) 05/18/17 05:14 pO2 201 mm/Hg (80-100) H 05/18/17 05:14 HCO3 25.4 mmol/L (21-28) 05/18/17 05:14 ABG pH 7.44 (7.35-7.45) 05/18/17 05:14 ABG Total CO2 25.6 mmol/L (22-28) 05/18/17 05:14 ABG O2 Saturation 99.7 % (95-98) H 05/18/17 05:14 ABG Base Excess 0.6 mmol/L (-2.0-3.0) 05/18/17 05:14 ABG Hemoglobin 12.5 g/dL (11.7-17.4) 05/18/17 05:14 ABG Carboxyhemoglobin 1.2 % (0.5-1.5) 05/18/17 05:14 POC ABG HHb (Measured) 0.3 % (0.0-5.0) 05/18/17 05:14 ABG Methemoglobin 1.3 % (0.0-3.0) 05/18/17 05:14 Horacio Test Pos 05/18/17 05:14 A-a O2 Difference 111.0 mm/Hg 05/18/17 05:14 Respiratory Index 0.6 05/18/17 05:14 Hgb O2 Saturation 97.2 % (95.0-98.0) 05/18/17 05:14 Mechanical Rate 14 05/18/17 05:14 FiO2 50.0 % 05/18/17 05:14 Tidal Volume 550 05/18/17 05:14 PEEP 5 05/18/17 05:14 Crit Value Called To Dr campos 05/17/17 20:05 Crit Value Called By J Carlos sultana 05/17/17 20:05 Crit Value Read Back Y 05/17/17 20:05 Blood Gas Notified Time 200905/17/17 20:05 Sodium 138 mmol/L (132-148) 05/19/17 07:52 Potassium 3.6 mmol/L (3.6-5.2) 05/19/17 07:52 Chloride 105 mmol/L (98-107) 05/19/17 07:52 Carbon Dioxide 27 mmol/L (22-30) 05/19/17 07:52 Anion Gap 10 (10-20) 05/19/17 07:52 BUN 10 mg/dL (9-20) 05/19/17 07:52 Creatinine 0.8 MG/DL (0.8-1.5) 05/19/17 07:52 Est GFR ( Amer) > 60 05/19/17 07:52 Est GFR (Non-Af Amer) > 60 05/19/17 07:52 POC Glucose (mg/dL) 115 mg/dL (65-110) H 05/17/17 16:19 Random Glucose 98 mg/dL (75-110) 05/19/17 07:52 Calcium 8.7 mg/dl (8.6-10.4) 05/19/17 07:52 Phosphorus 3.4 mg/dL (2.5-4.5) 05/18/17 06:27 Magnesium 2.4 mg/dL (1.6-2.3) H 05/18/17 06:27 Total Bilirubin 1.0 mg/dL (0.2-1.3) 05/19/17 07:52 AST 28 U/L (17-59) 05/19/17 07:52 ALT 21 U/L (21-72) 05/19/17 07:52 Alkaline Phosphatase 41 U/L (38-126) 05/19/17 07:52 Total Protein 6.7 g/dL (6.3-8.3) 05/19/17 07:52 Albumin 3.6 g/dL (3.5-5.0) 05/19/17 07:52 Globulin 3.1 gm/dL (2.2-3.9) 05/19/17 07:52 Albumin/Globulin Ratio 1.1 (1.0-2.1) 05/19/17 07:52 Free T4 0.61 ng/dL (0.78-2.19) L 05/18/17 06:27 TSH 3rd Generation 43.70 mIU/L (0.46-4.68) H 05/18/17 06:27 Urine Color Yellow (YELLOW) 05/17/17 17:37 Urine Clarity Clear (Clear) 05/17/17 17:37 Urine pH 5.0 (5.0-8.0) 05/17/17 17:37 Ur Specific [place] 1.014 (1.003-1.030) 05/17/17 17:37 Urine Protein 1+ mg/dL (NEGATIVE) H 05/17/17 17:37 Urine Glucose (UA) Normal mg/dL (Normal) 05/17/17 17:37 Urine Ketones Negative mg/dL (NEGATIVE) 05/17/17 17:37 Urine Blood Negative (NEGATIVE) 05/17/17 17:37 Urine Nitrate Negative (NEGATIVE) 05/17/17 17:37 Urine Bilirubin Negative (NEGATIVE) 05/17/17 17:37 Urine Urobilinogen Normal mg/dL (0.2-1.0) 05/17/17 17:37 Ur Leukocyte Esterase Neg Cristal/uL (Negative) 05/17/17 17:37 Urine WBC (Auto) 2 /hpf (0-5) 05/17/17 17:37 Urine RBC (Auto) 1 /hpf (0-3) 05/17/17 17:37 Ur Squamous Epith Cells < 1 /hpf (0-5) 05/17/17 17:37 Urine Bacteria Rare (<OCC) 05/17/17 17:37 Urine Opiates Screen Negative (NEGATIVE) 05/17/17 17:37 Urine Methadone Screen Negative (NEGATIVE) 05/17/17 17:37 Ur Barbiturates Screen Negative (NEGATIVE) 05/17/17 17:37 Ur Phencyclidine Scrn Negative (NEGATIVE) 05/17/17 17:37 Ur Amphetamines Screen Negative (NEGATIVE) 05/17/17 17:37 U Benzodiazepines Scrn Positive (NEGATIVE) 05/17/17 17:37 U Oth Cocaine Metabols Negative (NEGATIVE) 05/17/17 17:37 U Cannabinoids Screen Positive (NEGATIVE) 05/17/17 17:37 Alcohol, Quantitative < 10 mg/dl (0-10) 05/17/17 16:22 - Hospital Course Hospital Course: CC: seizure HPI: Patient a 36 year old -[place] male, with PMHx of thyroidectomy ( 2014), who was brought to [facility] by EMS after seizure. Pt was intubated in the field so further information is gathered from EMS chart and present at bedside. EMS notes describe patient having initial unwitnessed seizure on path train, followed by witnessed generalized tonic-clonic seizure by EMS. Witnessed seizure had duration of 10-15 minutes, and was noted to have "all extremites salma." EMS noted that post-seizure pt had lateral gaze to the right. EMS gave Ativan 2mg IV but seizure did not stop, so another 2mg was given. Pt was intubated in field by EMS. found at bedside who admits pt has had tremor in hands, along with episodes of "suddenly stopping what he was doing and staring into space" for the past 2-3 years. Pt reports these episodes happen a few times a month, and patient "snaps out of this trance suddenly" and without confusion. She denies patient has ever seen neurologist, but does follow up with PMD. She admits pt smokes "1/2 ounce of marijuana weekly ," with last usage yesterday. The only medications she is aware of are Synthroid 40mcg daily, and OTC Vitamin D supplement Patient was admitted for unwitnessed seizures and witnessed generalized seizures. Patient was intubated in the field. In the ED, EKG showed no acute changes, normal sinus rhythm. Chest xray showed no acute disease. In the ICU, patient was sedated on a propofol drip. Head CT was ordered and showed no definite acute intracranial abnormality. Neurology was consulted-Dr. Freeman. Patient received Keppra 1000mg IV bolus, followed by 500mg PO Q12H. There were no other clinical seizures overnight. Patient was extubated. Patient had an EEG which reported "normal awake and drowsy EEG due to benzodiazepines; may need prolonged EEG monitoring" , Brain MRI which showed a small cyst within the posterior superior margin of the pituitary gland of uncertain etiology; follow up study recommended. Patient's TSH was 45.7 and instructed to follow up with his PMD to adjust dosage. Patient is stable for discharge home as per Dr. Sullivan. This is a summary of the hospital course. Please see chart for details. Patient is stable to be discharge to home as per Dr. Sullivan. Patient should continue his home medication, Levothyroxine 75mg daily. Patient to start new medication indefinitely: Keppra 500mg twice a day. Patient is to follow up with outpatient neurologist, Dr. Freeman, within one week of discharge. Patient is to follow up with PMD, Dr. Ballard, within one week of discharge. He is advised not to drive any vehicle until he is cleared by neurologist. He is advised not to operate heavy machinery until he is cleared by his neurologist. If symptoms reoccur or patient has any concern, patient should return to the ED. Discharge Exam - Head Exam Head Exam: ATRAUMATIC, NORMOCEPHALIC - Eye Exam Eye Exam: EOMI, Normal appearance - ENT Exam ENT Exam: Mucous Membranes Moist - Respiratory Exam Respiratory Exam: UNREMARKABLE - Cardiovascular Exam Cardiovascular Exam: REGULAR RHYTHM - GI/Abdominal Exam GI & Abdominal Exam: Unremarkable - Extremities Exam Extremities exam: normal inspection - Neurological Exam Neurological exam: Alert, Oriented x3 - Psychiatric Exam Psychiatric exam: Normal Affect, Normal Mood - Skin Skin Exam: Dry, Intact, Normal Color Discharge Plan - Discharge Medications Prescriptions: levETIRAcetam [Keppra] 500 mg PO BID #60 tab - Follow Up Plan Condition: STABLE Disposition: HOME/ ROUTINE Instructions: Levetiracetam (By mouth), Epilepsy (DC), Status Epilepticus (DC) Additional Instructions: Patient is stable to be discharge to home as per Dr. Sullivan. Patient should continue his home medication, Levothyroxide 75mg daily. Patient to start new medication indefinitely: Keppra 500mg twice a day. Patient is to follow up with outpatient neurologist, Dr. Freeman, within one week of discharge. Patient is to follow up with PMD, Dr. Ballard, within one week of discharge. He is advised not to drive any vehicle until he is cleared by neurologist. He is advised not to operate heavy machinery until he is cleared by his neurologist. If symptoms reoccur or patient has any concern, patient should return to the ED. Referrals: Bong Ballard [Staff Provider] - Reggie Freeamn MD [Staff Provider] - <Aram Sullivan - Last Filed: 05/20/17 13:48> Provider - Provider Date of Admission: 05/17/17 18:21 Attending physician: Aram Sullivan MD Diagnosis - Discharge Diagnosis (1) Status epilepticus Status: Resolved Priority: High (2) Hypothyroidism Status: Chronic Hospital Course - Lab Results Lab Results: Micro Results 05/19/17 10:00 Naris MRSA Culture - Final MRSA NOT DETECTED 05/17/17 19:30 Naris MRSA Culture (Admit) - Final MRSA DETECTED Most Recent Lab Values WBC 9.4 K/uL (4.8-10.8) 05/19/17 06:41 RBC 3.86 Mil/uL (4.40-5.90) L 05/19/17 06:41 Hgb 12.4 g/dL (12.0-18.0) 05/19/17 06:41 Hct 36.8 % (35.0-51.0) 05/19/17 06:41 MCV 95.5 fL (80.0-94.0) H 05/19/17 06:41 MCH 32.0 pg (27.0-31.0) H 05/19/17 06:41 MCHC 33.5 g/dL (33.0-37.0) 05/19/17 06:41 RDW 13.8 % (11.5-14.5) 05/19/17 06:41 Plt Count 123 K/uL (130-400) L 05/19/17 06:41 MPV 9.9 fL (7.2-11.7) 05/19/17 06:41 Neut % (Auto) 67.0 % (50.0-75.0) 05/18/17 06:27 Lymph % (Auto) 25.1 % (20.0-40.0) 05/18/17 06:27 [place] % (Auto) 6.8 % (0.0-10.0) 05/18/17 06:27 Eos % (Auto) 0.4 % (0.0-4.0) 05/18/17 06:27 Baso % (Auto) 0.7 % (0.0-2.0) 05/18/17 06:27 Neut # 6.7 K/uL (1.8-7.0) 05/18/17 06:27 Lymph # 2.5 K/uL (1.0-4.3) 05/18/17 06:27 [place] # 0.7 K/uL (0.0-0.8) 05/18/17 06:27 Eos # 0.0 K/uL (0.0-0.7) 05/18/17 06:27 Baso # 0.1 K/uL (0.0-0.2) 05/18/17 06:27 Differential Comment 05/19/17 06:41 Puncture Site Rr 05/18/17 05:14 pCO2 36 mm/Hg (35-45) 05/18/17 05:14 pO2 201 mm/Hg (80-100) H 05/18/17 05:14 HCO3 25.4 mmol/L (21-28) 05/18/17 05:14 ABG pH 7.44 (7.35-7.45) 05/18/17 05:14 ABG Total CO2 25.6 mmol/L (22-28) 05/18/17 05:14 ABG O2 Saturation 99.7 % (95-98) H 05/18/17 05:14 ABG Base Excess 0.6 mmol/L (-2.0-3.0) 05/18/17 05:14 ABG Hemoglobin 12.5 g/dL (11.7-17.4) 05/18/17 05:14 ABG Carboxyhemoglobin 1.2 % (0.5-1.5) 05/18/17 05:14 POC ABG HHb (Measured) 0.3 % (0.0-5.0) 05/18/17 05:14 ABG Methemoglobin 1.3 % (0.0-3.0) 05/18/17 05:14 Horacio Test Pos 05/18/17 05:14 A-a O2 Difference 111.0 mm/Hg 05/18/17 05:14 Respiratory Index 0.6 05/18/17 05:14 Hgb O2 Saturation 97.2 % (95.0-98.0) 05/18/17 05:14 Mechanical Rate 14 05/18/17 05:14 FiO2 50.0 % 05/18/17 05:14 Tidal Volume 550 05/18/17 05:14 PEEP 5 05/18/17 05:14 Crit Value Called To Dr campos 05/17/17 20:05 Crit Value Called By [facility] 05/17/17 20:05 Crit Value Read Back Y 05/17/17 20:05 Blood Gas Notified Time 200905/17/17 20:05 Sodium 138 mmol/L (132-148) 05/19/17 07:52 Potassium 3.6 mmol/L (3.6-5.2) 05/19/17 07:52 Chloride 105 mmol/L (98-107) 05/19/17 07:52 Carbon Dioxide 27 mmol/L (22-30) 05/19/17 07:52 Anion Gap 10 (10-20) 05/19/17 07:52 BUN 10 mg/dL (9-20) 05/19/17 07:52 Creatinine 0.8 MG/DL (0.8-1.5) 05/19/17 07:52 Est GFR ( Amer) > 60 05/19/17 07:52 Est GFR (Non-Af Amer) > 60 05/19/17 07:52 POC Glucose (mg/dL) 115 mg/dL (65-110) H 05/17/17 16:19 Random Glucose 98 mg/dL (75-110) 05/19/17 07:52 Calcium 8.7 mg/dl (8.6-10.4) 05/19/17 07:52 Phosphorus 3.4 mg/dL (2.5-4.5) 05/18/17 06:27 Magnesium 2.4 mg/dL (1.6-2.3) H 05/18/17 06:27 Total Bilirubin 1.0 mg/dL (0.2-1.3) 05/19/17 07:52 AST 28 U/L (17-59) 05/19/17 07:52 ALT 21 U/L (21-72) 05/19/17 07:52 Alkaline Phosphatase 41 U/L (38-126) 05/19/17 07:52 Total Protein 6.7 g/dL (6.3-8.3) 05/19/17 07:52 Albumin 3.6 g/dL (3.5-5.0) 05/19/17 07:52 Globulin 3.1 gm/dL (2.2-3.9) 05/19/17 07:52 Albumin/Globulin Ratio 1.1 (1.0-2.1) 05/19/17 07:52 Free T4 0.61 ng/dL (0.78-2.19) L 05/18/17 06:27 TSH 3rd Generation 43.70 mIU/L (0.46-4.68) H 05/18/17 06:27 Urine Color Yellow (YELLOW) 05/17/17 17:37 Urine Clarity Clear (Clear) 05/17/17 17:37 Urine pH 5.0 (5.0-8.0) 05/17/17 17:37 Ur Specific [place] 1.014 (1.003-1.030) 05/17/17 17:37 Urine Protein 1+ mg/dL (NEGATIVE) H 05/17/17 17:37 Urine Glucose (UA) Normal mg/dL (Normal) 05/17/17 17:37 Urine Ketones Negative mg/dL (NEGATIVE) 05/17/17 17:37 Urine Blood Negative (NEGATIVE) 05/17/17 17:37 Urine Nitrate Negative (NEGATIVE) 05/17/17 17:37 Urine Bilirubin Negative (NEGATIVE) 05/17/17 17:37 Urine Urobilinogen Normal mg/dL (0.2-1.0) 05/17/17 17:37 Ur Leukocyte Esterase Neg Cristal/uL (Negative) 05/17/17 17:37 Urine WBC (Auto) 2 /hpf (0-5) 05/17/17 17:37 Urine RBC (Auto) 1 /hpf (0-3) 05/17/17 17:37 Ur Squamous Epith Cells < 1 /hpf (0-5) 05/17/17 17:37 Urine Bacteria Rare (<OCC) 05/17/17 17:37 Urine Opiates Screen Negative (NEGATIVE) 05/17/17 17:37 Urine Methadone Screen Negative (NEGATIVE) 05/17/17 17:37 Ur Barbiturates Screen Negative (NEGATIVE) 05/17/17 17:37 Ur Phencyclidine Scrn Negative (NEGATIVE) 05/17/17 17:37 Ur Amphetamines Screen Negative (NEGATIVE) 05/17/17 17:37 U Benzodiazepines Scrn Positive (NEGATIVE) 05/17/17 17:37 U Oth Cocaine Metabols Negative (NEGATIVE) 05/17/17 17:37 U Cannabinoids Screen Positive (NEGATIVE) 05/17/17 17:37 Alcohol, Quantitative < 10 mg/dl (0-10) 05/17/17 16:22 Attending/Attestation - Attestation I have personally seen and examined this patient.: Yes I have fully participated in the care of the patient.: Yes I have reviewed all pertinent clinical information, including history, physical exam and plan: Yes Notes (Text): 05/20/17 13:45 Patient was seen and examined at bedside with the resident today Patient is completely asymptomatic and has no further episode of seizures He is very anxious for discharge to home I discussed the discharge plan with the patient We will be counseled him on not driving awake until he has been cleared by neurologist We also counseled him and not operating any heavy machinery or any work which will cause injury to self or others Patient was also counseled on repeating an MRI within 6 months for follow-up the cyst. Patient verbalized understanding. I discussed the discharge plan with the resident. I agree with the discharge note by the resident.
== END 2017-05-19 14:40 | disposition home or self-care (01) | DRG 101 ==
LOC: C.ER 16:02 → C.9I 18:21 → C.3T 05-19 09:25
PROVIDERS: ADMIT Internal Medicine; ATTEND Internal Medicine
DX: G40.901 Epilepsy, unspecified, not intractable, with status epilepticus (principal); E89.0 Postprocedural hypothyroidism; F12.10 Cannabis abuse, uncomplicated; J45.909 Unspecified asthma, uncomplicated; F19.10 Other psychoactive substance abuse, uncomplicated

== ENCOUNTER 2017-06-19 07:04 | Emergency (ER) | payer SELFPAY ==
[2017-06-19 07:04] VITALS: BMI 25.8
[2017-06-19 07:19] VITALS: BP 114/77; PULSE 66; RESP 18; TEMP 98.6; O2SAT 100
--- NOTE | 2017-06-19 08:10 | C.PDOC ---
History Of Present Illness 36-year-old male, presents to the emergency department with complaints of feeling light headed and generalized weakness. States this feels the way he felt last time before a seizure. Patient was diagnosed last month with seizure disorder and he was started on Keppra. Patient states he ran out of his medication yesterday. Patient has a scheduled Neuro appointment at the end of this month with Dr Freeman. Of note, patient was seen by PMD, who states patient needs to get refill of meds from Neurology. Denies any visual changes, numbness/ weakness, fevers. Time Seen by Provider: 06/19/17 07:28 Chief Complaint (Nursing): Dizziness/Lightheaded History Per: Patient History/Exam Limitations: no limitations Current Symptoms Are (Timing): Still Present Past Medical History Reviewed: Historical Data, Nursing Documentation, Vital Signs Vital Signs: Last Vital Signs Temp 98.6 F 06/19/17 07:18 Pulse 66 06/19/17 07:18 Resp 18 06/19/17 07:18 BP 114/77 06/19/17 07:18 Pulse Ox 100 06/19/17 08:23 - Medical History PMH: Asthma (CHILDHOOD ,NO LONGER an active problem), Fractures (FINGERS), Seizures Denies: Chronic Kidney Disease - [facility] Procedures PERCUTAN NEEDLE BX OF THYROID GLAND (01/19/15) Family History: States: No Known Family Hx - Social History Hx Tobacco Use: No Hx Alcohol Use: No Hx Substance Use: Yes (MARIJUANA DAILY) - Immunization History Hx Influenza Vaccination: Yes Review Of Systems Except As Marked, All Systems Reviewed And Found Negative. Constitutional: Positive for: Weakness. Negative for: Fever, Chills Cardiovascular: Positive for: Light Headedness. Negative for: Chest Pain Respiratory: Negative for: Shortness of Breath Gastrointestinal: Negative for: Vomiting Neurological: Negative for: Weakness, Numbness, Dizziness Physical Exam - Physical Exam Appears: Non-toxic, No Acute Distress Skin: Warm, Dry, No Rash Head: Atraumatic, Normacephalic Eye(s): bilateral: Normal Inspection Nose: Normal Oral Mucosa: Moist Lips: Normal Appearing Neck: Normal ROM Cardiovascular: Rhythm Regular, No Murmur Respiratory: Normal Breath Sounds, No Accessory Muscle Use Extremity: Normal ROM Neurological/Psych: Oriented x3, Normal Speech, Normal Cranial Nerves (II-XII intact) Gait: Steady ED Course And Treatment O2 Sat by Pulse Oximetry: 100 Progress Note: Patient treated with Keppra. Disposition Counseled Patient/Family Regarding: Diagnosis, Need For Followup, Rx Given - Disposition Referrals: Reggie Freeman MD [Staff Provider] - Haja Ballard MD [Staff Provider] - Disposition: HOME/ ROUTINE Disposition Time: 08:35 Condition: STABLE Additional Instructions: FOLLOW UP WITH YOUR DOCTOR IN 1-2 DAYS, AND WITH NEUROLOGY SCHEDULED USE MEDICATIONS DAILY RETURN TO ER IF YOU HAVE ANY CONCERNING SYMPTOMS Prescriptions: levETIRAcetam [Keppra] 500 mg PO BID #60 tab Instructions: Epilepsy (ED) Print Language: ITALIAN - Clinical Impression Clinical Impression: Dizziness, Seizure disorder - Scribe Statement The provider has reviewed the documentation as recorded by the Scribe (Wendy Gasca) All medical record entries made by the Scribe were at my direction and personally dictated by me. I have reviewed the chart and agree that the record accurately reflects my personal performance of the history, physical exam, medical decision making, and the department course for this patient. I have also personally directed, reviewed, and agree with the discharge instructions and disposition.
--- NOTE | 2017-06-21 09:07 | CARD ---
APPROVED REPORT EKG Measurement Heart [id number] <Conclusion> Normal sinus rhythm Normal ECG
== END 2017-06-19 08:44 | disposition home or self-care (01) ==
LOC: C.ER 07:04
DX: G40.909 Epilepsy, unspecified, not intractable, without status epilepticus (principal); R42 Dizziness and giddiness

== ENCOUNTER 2017-08-07 20:33 | Emergency (ER) | payer OTHER ==
[2017-08-07 20:34] VITALS: BMI 25.8
[2017-08-07] MEDS ORDERED: Amoxicillin-Clav 875-125 mg Tab PO STA (21:22)
[2017-08-07] MEDS ORDERED: Tetracaine 0.5% Ophth (OR ONLY) ONE (21:26)
[2017-08-07] MEDS ORDERED: Fluorescein 1 mg Ophthalmic Strip ONE (21:26)
[2017-08-07] MEDS ORDERED: Amoxicillin-Clav 875-125 mg Tab PO ONE (21:27)
[2017-08-07] MEDS ORDERED: Bacitracin 500 Units/gm Oint Foilpak UD ONE (21:38)
[2017-08-07] MEDS ORDERED: Bacitracin 500 Units/gm Oint Foilpak UD TOP ONE (22:05)
[2017-08-07] MEDS ORDERED: Tetracaine 0.5% Ophth 2 ML BOTTLE OS ONE (22:07)
[2017-08-07] MEDS ORDERED: Fluorescein 1 mg Ophthalmic Strip OS ONE (22:11)
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
[2017-08-07] MEDS ORDERED: Tobramycin 0.3% OPH OINT ONE (22:22)
[2017-08-07 22:27] VITALS: BP 104/67; PULSE 75; RESP 16; TEMP 98.1
[2017-08-08 01:48] VITALS: O2SAT 98
== END 2017-08-07 22:26 | disposition home or self-care (01) ==
LOC: C.ER 20:33 → SUPCPDRO 20:33 → C.ER 22:26
DX: S41.152A Open bite of left upper arm, initial encounter (principal); S05.02XA Injury of conjunctiva and corneal abrasion without foreign body, left eye, initial encounter; S50.312A Abrasion of left elbow, initial encounter; S50.311A Abrasion of right elbow, initial encounter; Y04.1XXA Assault by human bite, initial encounter